=== PATIENT | female | born 1965 | race Caucasian/White ===

== ENCOUNTER 2019-11-17 09:06 | Outpatient (CLI) | payer MEDICAID, SELFPAY ==
--- NOTE | 2019-11-17 08:15 | DI.RAD_ITS ---
EXAM: XR FOOT RT COMPLETE CLINICAL HISTORY: ?AVN of talus. TECHNIQUE: 2D digital imaging was performed. COMPARISON: No exams were available for comparison FINDINGS: BONES: No acute fracture is present. No bony destructive lesion is seen. Bones appear osteoporotic. JOINTS: No dislocation present. There are mild degenerative changes of the 1st MTP joint and tarsal metatarsal joints. SOFT TISSUE: Normal. IMPRESSION: No acute abnormality. DATA REPOSITORY: RADIATION DOSE DELIVERED:
--- NOTE | 2019-11-17 08:15 | DI.RAD_ITS ---
EXAM: XR ANKLE RT COMPLETE CLINICAL HISTORY: eval right ankle pain and h/o fracture TECHNIQUE: 2D digital imaging was performed. COMPARISON: MR [facility] MRI Lower Ext Jnt RT w w/oCont from 06/10/2019 CR XR FOOT RT COMPLETE from 11/17/2019 FINDINGS: The bones appear osteopenic. There is a residual lucency in the distal fibula consistent with an ol d fracture. No acute fracture is visible. The ankle joint space shows mild narrowing. No talar dom e defect is seen. IMPRESSION: Old distal fibular fracture. No acute abnormality.
== END 2019-11-17 09:26 ==
PROVIDERS: Visit Provider Student in an Organized Health Care Education/Training Program
DX: M25.571 Pain in right ankle and joints of right foot (principal); Z87.81 Personal history of (healed) traumatic fracture
CPT/HCPCS: 73610; 73630

== ENCOUNTER 2019-12-20 00:47 | Outpatient (CLI) | payer MEDICAID, SELFPAY ==
--- NOTE | 2019-12-20 07:30 | DI.MRI_ITS ---
EXAM: MR LOWER JOINT RT WO CLINICAL HISTORY: R ANKLE PAIN, HX DISTAL FIB FX, RT ANKLE PAIN, M25.571 TECHNIQUE: Multiplanar multisequence MRI was performed without intravenous contrast. COMPARISON: MR [facility] MRI Lower Ext Jnt RT w w/oCont from 06/10/2019 FINDINGS: BONES/JOINTS: Near complete complete resolution of the hyperintense signal in the talus. Abnormal si gnal in the cuboid has resolved. The signal in the distal fibula has resolved. No bone lesions iden tified. The talar dome is smooth. The ankle mortise is maintained. No joint effusion is present. LIGAMENTS: The tibiofibular and calcaneofibular ligaments are intact. The talofibular ligaments are i ntact. The deltoid ligament is intact. The syndesmosis is unremarkable. Sinus tarsi is normal. MUSCULOTENDINOUS STRUCTURES: Achilles tendon: Unremarkable. Plantar fascia: Unremarkable. Anterior Extensor tendons: Unremarkable. Posterior Tibialis: Unremarkable. Flexor Digitorum longus: Unremarkable. Flexor Hallicus longus: Unremarkable. Peroneus longus: Unremarkable. Peroneus brevis:Unremarkable. SOFT TISSUES: Unremarkable. OTHER FINDINGS: None. IMPRESSION: 1. No evidence of a ligament or tendon tear. 2. Persistent very mild hyperintense signal within the talus. 3. Resolution of the hyperintense signal in the distal fibula and cuboid. 4. No findings to suggest an acute fracture. DATA REPOSITORY:
== END 2019-12-20 01:07 ==
PROVIDERS: PCP Internal Medicine; Visit Provider Student in an Organized Health Care Education/Training Program
DX: M25.571 Pain in right ankle and joints of right foot (principal)
CPT/HCPCS: 73721

== ENCOUNTER 2020-05-21 15:22 | Outpatient (CLI) | payer MEDICAID, SELFPAY ==
--- NOTE | 2020-05-21 14:45 | DI.RAD_ITS ---
EXAM: XR FOOT RT COMPLETE CLINICAL HISTORY: eval R midfoot pain. TECHNIQUE: 2D digital imaging was performed. COMPARISON: CR XR FOOT RT COMPLETE from 11/17/2019 FINDINGS: BONES: No bony destructive lesion is seen. There is linear area of sclerosis seen in the posterior p rocess of the calcaneus. This may represent a healing fracture. MRI may be obtained for further arturo luation. Please correlate clinically. JOINTS: No dislocation present. The joint spaces are well maintained. SOFT TISSUE: Normal. IMPRESSION: Linear area of sclerosis involving the posterior process of the calcaneus suspicious for healing frac ture. MRI may be obtained for further evaluation. DATA REPOSITORY: RADIATION DOSE DELIVERED:
== END 2020-05-21 15:42 ==
PROVIDERS: PCP Internal Medicine; Referring Provider Internal Medicine; Visit Provider Student in an Organized Health Care Education/Training Program
DX: M79.671 Pain in right foot (principal)
CPT/HCPCS: 73630